=== PATIENT | male | born 1950 | race African-American/Black ===

== ENCOUNTER 2020-03-01 17:47 | Emergency (ER) | payer OTHER, MEDICAID ==
[~2020-03-01] VITALS: Ht 180.3 cm; Wt 80.0 kg
[~2020-03-01 17:47] MED LIST: ASPI-1158 PO; ATEN-42 PO; HYDR-4001 PO; LOSA25TA26 PO; METH2.5T PO; NIFE90TA2 PO
[2020-03-01] MEDS ORDERED: SODIUM CHLORIDE 0.9% 1,000 ML IV ONE (19:00)
[2020-03-01 19:50] LABS: BASOPHILS % 0.7 % (0.0-2.0); EOSINOPHILS % 7.3 % (0.0-5.0); HEMATOCRIT. 31.8 % (42.0-52.0); HEMOGLOBIN. 10.2 g/dL (14.0-18.0); LYMPHOCYTES % 9.8 % (20.0-50.0); MEAN CORPUSCULAR HEMOGLOBIN 31.6 pg (28.0-32.0); MEAN CORPUSCULAR VOLUME 98.1 fL (80.0-94.0); MEAN PLATELET VOLUME 9.3 fl (7.4-10.4); MONOCYTES % 5.2 % (2.0-8.0); PLATELET 182 x1000/uL (130-400); RED BLOOD CELL COUNT 3.24 mill/uL (4.7-6.1); RED CELL DISTRIBUTION WIDTH 22.5 % (11.6-14.6)
[2020-03-01 19:55] LABS: CHLORIDE 111 mEq/L (98-107)
[2020-03-01 19:57] LABS: PARTIAL THROMBOPLASTIN TIME 31.3 sec (23.4-31.0); PROTHROMBIN TIME 10.9 sec (9.6-11.0)
[2020-03-01 20:35] LABS: PLATELET ESTIMATE NORMAL
[2020-03-01] MEDS ORDERED: ASPIRIN 325MG EC TABLET PO ONE (20:45)
[2020-03-01] MEDS ORDERED: AZITHROMYCIN 500 MG in DEXT 5% WATER 250 ML IV ONE (21:00)
[2020-03-01] MEDS ORDERED: CEFTRIAXONE 1 G PREMIX 50 ML IV ONE (21:00)
[2020-03-01 23:50] VITALS: BP 134/76
== END 2020-03-01 23:50 ==
LOC: ER 17:47
DX: H53.8 Other visual disturbances (principal); J18.9 Pneumonia, unspecified organism; J44.1 Chronic obstructive pulmonary disease with (acute) exacerbation; I10 Essential (primary) hypertension; Z79.899 Other long term (current) drug therapy; Z98.890 Other specified postprocedural states; Z86.73 Personal history of transient ischemic attack (TIA), and cerebral infarction without residual deficits
CPT/HCPCS: 36415; 70450; 71045; 80053; 83605; 83880; 84484; 85025; 85610; 85730; 87040; 87635; 93005; 96374; 96375; 99285; J0456; J0696; J7030; J7060